=== PATIENT | male | born 1965 | race Caucasian/White ===

== ENCOUNTER 2016-07-04 17:45 | Inpatient (IN) | payer BC ==
[~2016-07-04] VITALS: Ht 180.3 cm; Wt 99.0 kg
[~2016-07-04 17:45] MED LIST: NORCO 5/3251 TABLET PO; PERCOCET 5/31 TABLET PO
[2016-07-04 19:10] LABS: HEMATOCRIT 38.6 % (38.0-50.0); MCH 27.4 PG (29.0-34.0); MCHC 35.8 G/DL (30.0-36.0); MCV 76.6 FL (86-99); MEAN PLAT.VOLUME 11.9 uM^3 (9.0-12.4); PLATELET COUNT 262 K/uL (156-360); RBC DIS.WIDTH-CV 14.7 % (11.8-14.6); RBC DIS.WIDTH-SD 38.8 % (39-53); RED BLOOD COUNT 5.04 M/uL (4.00-5.50); WHITE BLOOD COUNT 8.2 K/uL (4.1-10.2)
[2016-07-04 20:22] LABS: CHLORIDE 107 mEq/L (99-109); SODIUM 138 mEq/L (136-147)
[2016-07-04 20:24] LABS: GLUCOSE 85 mg/dL (70-99)
[2016-07-04 20:26] LABS: ANION GAP 12 MEQ/L (2-14); TOTAL BILIRUBIN 0.9 mg/dL (0.0-1.0)
[2016-07-04 20:28] LABS: ALKALINE PHOSPHATASE 56 IU/L (3-129); GFR ESTIMATE (CALCULATED) > 59 mL/min/; INTER. NORMALIZED RATIO 1.2; PROTHROMBIN TIME 12.1 (9.2-11.2); PTT 28.3 (25-32)
[2016-07-04 20:29] LABS: UREA NITROGEN (BUN) 16 mg/dL (9-23)
[2016-07-04 22:12] LABS: CHLORIDE 107 mEq/L (99-109); POTASSIUM 3.6 mEq/L (3.7-5.4); SODIUM 139 mEq/L (136-147)
[2016-07-04 22:15] LABS: GLUCOSE 87 mg/dL (70-99)
[2016-07-04 22:16] LABS: ANION GAP 12 MEQ/L (2-14)
[2016-07-04 22:17] LABS: TOTAL BILIRUBIN 1.1 mg/dL (0.0-1.0)
[2016-07-04 22:18] LABS: ALKALINE PHOSPHATASE 57 IU/L (3-129); GFR ESTIMATE (CALCULATED) > 59 mL/min/
[2016-07-04 22:19] LABS: UREA NITROGEN (BUN) 15 mg/dL (9-23)
[2016-07-05] VITALS (7 sets, daily range): BP systolic 125–141; BP diastolic 72–96
[2016-07-06 01:07] LABS: HEMATOCRIT 38.7 % (38.0-50.0); MCH 27.2 PG (29.0-34.0); MCHC 35.4 G/DL (30.0-36.0); MCV 76.9 FL (86-99); PLATELET COUNT 249 K/uL (156-360); RBC DIS.WIDTH-CV 14.2 % (11.8-14.6); RBC DIS.WIDTH-SD 38.4 % (39-53); RED BLOOD COUNT 5.03 M/uL (4.00-5.50); WHITE BLOOD COUNT 8.3 K/uL (4.1-10.2)
[2016-07-06 04:36] VITALS: BP 142/80
[2016-07-06 08:47] VITALS: BP 113/64
[2016-07-06 13:16] VITALS: BP 126/85
[2016-07-06] MEDS ORDERED: XARELTO15 MG PO (13:44)
== END 2016-07-06 17:54 | disposition home or self-care (01) | DRG 299 ==
LOC: RME 17:45 → EME 17:45 → EDOF 23:31 → 3EAST 23:31
PROVIDERS: Physician Assistant; Physician Assistant Medical
DX: I82.431 Acute embolism and thrombosis of right popliteal vein (principal); I26.99 Other pulmonary embolism without acute cor pulmonale; I82.441 Acute embolism and thrombosis of right tibial vein; S92.311S Displaced fracture of first metatarsal bone, right foot, sequela; Z82.49 Family history of ischemic heart disease and other diseases of the circulatory system
CPT/HCPCS: 71275; 80053; 85027; 85610; 85730; 93005; 93306; 99202; 99281; 99285; J7030